=== PATIENT | female | born 1995 | race African-American/Black ===

== ENCOUNTER 2018-11-27 12:24 | Inpatient (IN) ==
[2018-11-27] MEDS ORDERED: ceFAZolin 3,000 MG in SYRINGE 1 EACH IV ONE (12:35)
[2018-11-27] MEDS ORDERED: FAMOTIDINE 20 MG/2 ML VIAL IV ONE (12:35)
[2018-11-27] MEDS ORDERED: CITRIC ACID/SODIUM CITRATE 30 ML UDCUP PO ONE (12:35)
[2018-11-27] MEDS ORDERED: OXYTOCIN 10 UNIT/ML VIAL IM ONE (12:37)
[2018-11-27] MEDS ORDERED: OXYTOCIN/LR 30 UNIT/1,000 ML BAG IV ONE (12:37)
[2018-11-27 12:59] LABS: Basophils % 0.2 % (0.0-0.8); Eosinophils # 0.1 10*3/uL (0.0-0.87); Hematocrit 31.4 VOL% (35.7-47.0); Hemoglobin 9.4 GM/DL (12.0-16.0); Immature Granulocytes % 0.7 %; Immature Granulocytes Absolute 0.07 #; Lymphocytes # 1.4 10*3/uL (1.4-4.0); Lymphocytes % 13.6 % (21.3-54.2); Mean Corpuscular HGB Conc 29.9 GM/DL (32-36); Mean Corpuscular Volume 78.9 FL (87-102); Mean Platelet Volume 9.9 FL (9.6-12.0); Monocytes % 5.4 % (1.7-12.7); NRBC # 0.02 10*3/uL; Neutrophils % 79.1 % (38.7-73.9); Platelet Count 212 T/CUMM (130-400); Red Blood Count 3.98 MC/CUMM (3.8-5.5); Red Cell Distribution Width 15.2 % (9.3-17.3)
[2018-11-27] MEDS ORDERED: LACTATED RINGERS 1,000 ML IV SCH ×2 (13:00→14:30)
[2018-11-27 13:11] LABS: INR 0.9; PT Patient Result 9.9 SECS (9.6-12.2); Partial Thromboplastin Time 27.3 SECS (20.8-36.0)
[2018-11-27 13:31] LABS: Alanine Aminotransferase 17 U/L (13-56); Albumin 2.1 G/DL (3.4-5.0); Alkaline Phosphatase 132 U/L (45-117); Aspartate Amino Transferase 25 U/L (0-37); Bilirubin,Total < 0.39 MG/DL (0.2-1.0); Blood Urea Nitrogen 4 MG/DL (7-18); Calcium 8.7 MG/DL (8.5-10.1); Estimated Glom Filtration Rate 157 ML/MIN; Glucose 128 MG/DL (74-106); Osmolality,Calculated 277.4 MOS/KG (273-304); Total Protein 5.8 G/DL (6.4-8.3)
[2018-11-27 13:39] LABS: Bilirubin,Direct < 0.100 MG/DL (0.0-0.20); Uric Acid 5.1 MG/DL (2.6-6.0)
[2018-11-27] MEDS ORDERED: FUROSEMIDE 40 MG/4 ML VIAL IV ONE (13:51)
[2018-11-27 14:27] LABS: Cord Arterial Blood HCO3 24.8 MMOL/L
[2018-11-27] MEDS ORDERED: SIMETHICONE CHEW 80 MG TABLET PO PRN (14:28)
[2018-11-27] MEDS ORDERED: MAGNESIUM HYDROXIDE SUSP 30 ML UDCUP PO PRN (14:28)
[2018-11-27] MEDS ORDERED: ONDANSETRON 4 MG/2 ML VIAL IV PRN (14:28)
[2018-11-27] MEDS ORDERED: ACETAMINOPHEN 325 MG TABLET PO PRN (14:28)
[2018-11-27] MEDS ORDERED: RHO(D) IMMUNE GLOBULIN 300 MCG SYRINGE IM ONE (14:28)
[2018-11-27] MEDS ORDERED: OXYTOCIN/LR 20 UNIT/1,000 ML BAG IV ONE (14:28)
[2018-11-27 14:29] LABS: Cord Venous Blood HCO3 22.8 MMOL/L; Cord Venous Blood PCO2 41.6 MMHG; Cord Venous Blood PO2 33.7
[2018-11-27 14:30] LABS: Cord Arterial Blood HCO3 25.2 MMOL/L
[2018-11-27 14:32] LABS: Apearance,Urine CLEAR (Clear); Bilirubin,Urine Negative (Negative); Blood, Urine Negative (Negative); Glucose,Urine (UA) Negative (Negative); Ketones,Urine Negative (Negative); Mucus,Urine Occasional /LPF (Occasional); Nitrite,Urine Negative (Negative); Protein,Urine 100 MG/DL; RBC,Urine <1 /HPF (0-4); Squamous Epithelial Cell,Urine Occasional /HPF (0-10); Transitional Epi Cells,Urine Occasional /HPF (<1); Urine Color Yellow (Yellow); Urine Specific Gravity 1.016 (1.001-1.035); Urine Urobilinogen < 2.0 EU/DL (0.2-1.0); WBC,Urine 1 /HPF (0-6)
[2018-11-27 14:34] LABS: Cord Venous Blood HCO3 22.4 MMOL/L; Cord Venous Blood PCO2 46.2 MMHG; Cord Venous Blood PO2 29.4
[2018-11-27] MEDS ORDERED: BUPIVACAINE SPINAL 0.75% 2 ML AMP SPINAL ONE (14:50)
[2018-11-27] MEDS ORDERED: PHENYLEPHRINE 1 MG/10 ML SYRINGE IV ONE (14:51)
[2018-11-27] MEDS ORDERED: ONDANSETRON 4 MG/2 ML VIAL ONE (14:51)
[2018-11-27] MEDS ORDERED: MORPHINE 10 MG/10 ML VIAL ONE (14:51)
[2018-11-27] MEDS ORDERED: hydrOXYzine HCL 25 MG/1 ML VIAL IM PRN (15:36)
[2018-11-27] MEDS ORDERED: HYDROmorphone 2 MG/1 ML VIAL IV PRN (15:36)
[2018-11-27] MEDS ORDERED: diphenhydrAMINE 50 MG/1 ML VIAL IV PRN (15:36)
[2018-11-27] MEDS ORDERED: diphenhydrAMINE CAP 25 MG CAPSULE PO PRN (21:00)
[2018-11-27] MEDS: ceFAZolin 1,000 MG in SYRINGE 1 EACH IV SCH (21:07)
[2018-11-27] MEDS: FUROSEMIDE 40 MG/4 ML VIAL IV SCH (21:07)
[2018-11-27] MEDS: DOCUSATE SODIUM 100 MG CAPSULE PO SCH (21:08)
[2018-11-27 21:26] LABS: Basophils % 0.2 % (0.0-0.8); Eosinophils # 0.1 10*3/uL (0.0-0.87); Eosinophils % 0.5 % (0.00-10.9); Hematocrit 30.6 VOL% (35.7-47.0); Hemoglobin 9.3 GM/DL (12.0-16.0); Immature Granulocytes % 0.6 %; Immature Granulocytes Absolute 0.06 #; Lymphocytes # 1.3 10*3/uL (1.4-4.0); Lymphocytes % 12.4 % (21.3-54.2); Mean Corpuscular HGB Conc 30.4 GM/DL (32-36); Mean Corpuscular Volume 77.9 FL (87-102); Monocytes % 9.4 % (1.7-12.7); Neutrophils % 76.9 % (38.7-73.9); Platelet Count 194 T/CUMM (130-400); Red Blood Count 3.93 MC/CUMM (3.8-5.5); Red Cell Distribution Width 15.2 % (9.3-17.3); White Blood Count 10.8 T/CUMM (4-12)
[2018-11-28] MEDS ORDERED: LACTATED RINGERS 1,000 ML IV SCH
[2018-11-28] MEDS: FUROSEMIDE 40 MG/4 ML VIAL IV SCH ×4 (03:04→21:39)
[2018-11-28] MEDS: ceFAZolin 1,000 MG in SYRINGE 1 EACH IV SCH (04:52)
[2018-11-28 05:55] LABS: Basophils % 0.3 % (0.0-0.8); Eosinophils # 0.1 10*3/uL (0.0-0.87); Eosinophils % 0.7 % (0.00-10.9); Hematocrit 32.4 VOL% (35.7-47.0); Hemoglobin 9.8 GM/DL (12.0-16.0); Immature Granulocytes % 0.5 %; Immature Granulocytes Absolute 0.06 #; Lymphocytes # 1.9 10*3/uL (1.4-4.0); Lymphocytes % 15.8 % (21.3-54.2); Mean Corpuscular HGB Conc 30.2 GM/DL (32-36); Mean Corpuscular Volume 77.3 FL (87-102); Mean Platelet Volume 10.4 FL (9.6-12.0); Monocytes % 6.6 % (1.7-12.7); Neutrophils % 76.1 % (38.7-73.9); Platelet Count 225 T/CUMM (130-400); Red Blood Count 4.19 MC/CUMM (3.8-5.5); Red Cell Distribution Width 15.2 % (9.3-17.3); White Blood Count 11.7 T/CUMM (4-12)
[2018-11-28] MEDS ORDERED: diphenhydrAMINE CAP 50 MG CAPSULE PO PRN (07:45)
[2018-11-28] MEDS ORDERED: diphenhydrAMINE CAP 50 MG CAPSULE ONE (07:47)
[2018-11-28] MEDS: MAGNESIUM HYDROXIDE SUSP 30 ML UDCUP PO SCH ×2 (08:59→21:38)
[2018-11-28] MEDS: MULTIVITAMIN (PRENATAL) TABLET PO SCH (08:59)
[2018-11-28] MEDS: DOCUSATE SODIUM 100 MG CAPSULE PO SCH ×2 (08:59→21:38)
[2018-11-28] MEDS: METOCLOPRAMIDE 10 MG TABLET PO SCH ×2 (08:59→16:23)
[2018-11-28] MEDS: IBUPROFEN 800 MG TABLET PO PRN (15:18)
[2018-11-28] MEDS ORDERED: FUROSEMIDE 40 MG/4 ML VIAL IV SCH (21:30)
[2018-11-29] MEDS: METOCLOPRAMIDE 10 MG TABLET PO SCH ×2 (00:17→08:39)
[2018-11-29] MEDS: IBUPROFEN 800 MG TABLET PO PRN ×2 (00:18→13:37)
[2018-11-29 05:04] LABS: Alanine Aminotransferase 16 U/L (13-56); Albumin 1.7 G/DL (3.4-5.0); Alkaline Phosphatase 99 U/L (45-117); Aspartate Amino Transferase 26 U/L (0-37); Bilirubin,Total < 0.39 MG/DL (0.2-1.0); Blood Urea Nitrogen 7 MG/DL (7-18); Calcium 8.1 MG/DL (8.5-10.1); Estimated Glom Filtration Rate 178 ML/MIN; Glucose 137 MG/DL (74-106); Osmolality,Calculated 280.3 MOS/KG (273-304); Total Protein 4.9 G/DL (6.4-8.3)
[2018-11-29] MEDS: MULTIVITAMIN (PRENATAL) TABLET PO SCH (08:39)
[2018-11-29] MEDS: DOCUSATE SODIUM 100 MG CAPSULE PO SCH (08:42)
[2018-11-29] MEDS: MAGNESIUM HYDROXIDE SUSP 30 ML UDCUP PO SCH (08:42)
[2018-11-29] MEDS ORDERED: POTASSIUM CHLORIDE 20 MEQ TABLET PO SCH (09:00)
[2018-11-29 11:26] VITALS: BP 118/68
[2018-11-30] MEDS ORDERED: INFLUENZA VIRUS VACCINE 0.5 ML SYRINGE IM ONE (09:00)
== END 2018-11-29 14:35 | disposition home or self-care (01) | DRG 540 ==
LOC: N.LD 12:24 → N.OB 20:51
PROVIDERS: ADMIT Obstetrics & Gynecology; ATTEND Obstetrics & Gynecology
PROC: LDCSECT (ICD-10-PCS; 2018-11-27 13:15)